=== PATIENT | female | born 1990 | race African-American/Black ===

== ENCOUNTER 2024-09-13 16:32 | Inpatient (IN) | payer MEDICAID, SELFPAY ==
[2024-09-10 09:42] VITALS: BMI 33.1
[2024-09-10 10:04] LABS: Collection Type, Urine Clean Catch
[2024-09-10 11:10] LABS: Basophils # (Auto) 0.1 Thou/mm3 (0.0-0.2); Basophils % (Auto) 1 % (0-2.5); Eosinophils # (Auto) 0.1 Thou/mm3 (0.0-0.5); Eosinophils % (Auto) 1 % (0-10); Immature Granulocytes % (Auto) 0 % (0-0); Immature Granulocytes Auto 0.02 Thou/mm3 (0.00-0.00); Lymphocytes # (Auto) 4.4 Thou/mm3 (1.0-4.8); Lymphocytes % (Auto) 47 % (10-50); Mean Corpuscular HGB Conc 34.2 g/dl (31.0-37.0); Mean Corpuscular Volume 91 fL (80-100); Monocytes # (Auto) 0.9 Thou/mm3 (0.0-0.8); Monocytes % (Auto) 10 % (0-12); Neutrophils # (Auto) 3.9 Thou/mm3 (1.8-7.7); Neutrophils % (Auto) 42 % (37-80); Nucleated Red Blood Cell % 0 /100 WBC (0); Platelet Count 376 Thou/mm3 (140-440); RDW Standard Deviation 46.5 fL (36.4-46.3); Red Blood Count 4.19 Miln/mm3 (4.00-5.20); White Blood Count 9.4 Thou/mm3 (3.6-11.0)
[2024-09-10 11:21] LABS: Alanine Aminotransferase 12 U/L (10-49); Albumin, Serum 4.3 gm/dL (3.5-5.0); Albumin/Globulin Ratio 1.4 (1.2-2.2); Alkaline Phosphatase 63 U/L (46-116); Anion Gap 4 (7-16); Aspartate Amino Transferase 15 U/L (0-34); BUN/Creatinine Ratio 9 Ratio (12-20); Bilirubin,Total 0.4 mg/dL (0.3-1.2); Blood Urea Nitrogen 6 mg/dL (9-23); Calcium 9.5 mg/dL (8.3-10.6); Calcium (Corrected) 9.5 mg/dL (8.5-10.1); Carbon Dioxide 28.4 mMol/L (20.0-31.0); Chloride 105 mMol/L (98-107); Creatinine (Component) 0.7 mg/dL (0.6-1.3); Estimated Creatinine Clearance 116.9 mL/min (>60); Glucose 87 mg/dL (74-106); Osmolality,Calculated 270 (275-295); Sodium 137 mMol/L (136-145); Total Protein 7.3 gm/dL (5.7-8.2); eGFR > 60 See Note
[2024-09-10 11:22] LABS: HCG Qualitative,Urine Negative
[2024-09-10 11:24] LABS: Bacteria,Urine Rare; Bilirubin,Urine Negative (Negative); Blood,Urine Trace (Negative); Clarity,Urine Clear (Clear/Hazy); Color,Urine Yellow (Lt Yel-Yel); Glucose, Urine Negative (Negative); Ketones,Urine Negative (Negative); Leukocyte Esterase,Urine Positive (Negative); Nitrite,Urine Negative (Negative); Protein,Urine 1+ (Neg - Trace); RBC,Urine 2 /hpf (0-3); Specific Gravity,Urine 1.032 (1.001-1.035); Squamous Epithelial Cell,Urine 1 /hpf (0-5); WBC,Urine 1 /hpf (0-5)
[2024-09-10 11:26] LABS: Partial Thromboplastin Time 29.1 Seconds (22.0-36.0); Prothrombin Time 11.3 Seconds (9.0-12.2)
[2024-09-10 11:32] LABS: COVID-19 Antigen (In-House) Negative (Negative)
--- NOTE | 2024-09-12 13:53 | PD.SURHP ---
HPI Date of Admission 09/13/2024 Chief Complaint Chief Complaint: Refrectory GERD after Gastric sleeve resection. HPI This 34 years old black female had gastric sleeve resection and she lost about 110 lbs but developed acid reflex. This is not responding well to PPI medications. She was found to have hiatal hernia and reflux. She will undergo laparoscopic Hiatal hernia and implantation of patch and fundoplication. Informed consent was obtained. Past Medical History Past Medical History NEUROLOGIC: Negative Neurological Disorders or Seizures CARDIAC: Negative Cardiac Disorders or Congestive Heart Failure RESPIRATORY: Negative Respiratory Disorders or Chronic Obstructive Pulmonary Disease (COPD) GASTROINTESTINAL: Positive Gastrointestinal Disorders, Hemorrhoids and Obesity; Negative Hepatitis GENITOURINARY: Negative Genitourinary Disorders or Renal Disease REPRODUCTIVE: Positive Previous Pregnancies (x1) MUSCULOSKELETAL: Positive Musculoskeletal Disorders and Scoliosis (had surgery) ENT: Negative History of ENT Problems ENDOCRINE: Negative Endocrine Disorders, Diabetes Mellitus Type 1 or Diabetes Mellitus Type 2 HEMATOLOGIC: Negative Blood Disorders OTHER HISTORY: Positive Hospitalization (hernia) and Chicken Pox; Negative Autoimmune Disease, Shingles, Blood Transfusions, Blood Transfusion Reaction, Anesthesia Reactions or Cancer Family History FAMILY HISTORY: Positive Family Surgery; Negative Family Psychiatric Problems, Family Respiratory Disorders, Family Cardiac Disorders, Family Gastrointestinal Problems, Family Genitourinary Problems, Family Endocrine Disorders, Family Reproductive Disorders, Family Musculoskeletal Disorders, Family Cancer or Family Anesthesia Reaction Surgical History SURGICAL: Positive Gastric Bypass Surgery and of Back Surgery (with metal for scoliosis) OTHER SURGICAL HX: breast reduction, tummy tuck Social History SMOKING STATUS: Never smoker Travel History EBOLA RISK: No Meds Home Medications and Allergies Home Medications ?Medication ?Instructions ?Recorded ?Confirmed ?Type No Known Home Medications 03/30/24 09/10/24 History Allergies Allergy/AdvReac Type Severity Reaction Status Date / Time No Known Allergies Allergy Verified 09/10/24 09:41 Exam Constitutional Constitutional: no acute distress Routine HEENT Exam Head: Present normocephalic Eye: Present EOMI and PERRL ENT: Present mucous membranes moist Routine Neck Exam Neck: Present supple and trachea midline Routine Chest/Breast/Axilla Exam Chest wall: Absent tenderness or mass Routine Respiratory Exam Respiratory: Present chest non-tender, lungs clear, normal breath sounds and no resp distress; Absent respiratory distress Routine Cardiovascular Exam Cardiovascular: Present RRR Routine Abdominal Exam Abdominal: Present soft and normoactive bowel sounds Routine Extremities Exam Extremities: Present full ROM Routine Skin Exam Skin: Present intact, dry and warm Routine Neurological Exam Neurological: Present alert, oriented X3 and CN II-XII intact Routine Psychiatric Exam Psychiatric: Present normal affect and normal thought process Results Results: Laboratory Laboratory results: results reviewed Assessment & Plan Problem List (1) Regurgitant esophagitis: Status: Acute (2) Left upper quadrant pain: Status: Acute (3) Hernia, hiatal: Status: Acute Plan Laparoscopic hiatal hernia repair with implantation of a patch and antireflux fundoplication. Quality Measures Quality Measures VTE prophylaxis
[2024-09-13] VITALS (16 sets, daily range): BP systolic 112–142; BP diastolic 70–90; PULSE 55–88; RESP 13–20; TEMP 36.1–36.9; O2SAT 95–99; BMI 33.0; BMI 33.5
[2024-09-13] MEDS: RINGERS LACTATED 1000 ML 1,000 ML 60 ML IV (08:45)
--- NOTE | 2024-09-13 10:39 | CHAP ---
Patient expressed gratitude for prayer before their procedure.
--- NOTE | 2024-09-13 14:51 | ESOP_ITS ---
Date of Procedure 09/13/24 Pre Op Diagnosis S/p gastric sleeve resection and refractory gastroesophageal reflux. Post Op Diagnosis Same with the severe adhesions to the liver and the spleen lysis of adhesions produce bleeding from the splenic hilum. Procedure Attempted laparoscopic antireflux procedure and laparoscopic lysis of adhesions September 13, 2024 Exploratory laparotomy and control of splenic bleeding from hilum 270 degree Toupet fundoplication. Findings This patient had a previous gastric sleeve resection as a obesity management surgery. She had significant gastroesophageal reflux and therefore she was brought to the operating room for laparoscopic antireflux procedure. Upon examination she was found to have severe adhesions of the stomach to the liver and lysis of adhesions was carried out safely. The diaphragmatic hiatus was identified. This was very small. Further dissection was carried out to the left side stomach where the stomach was densely adherent to the splenic hilum. Attempted to lysis of adhesions. Bleeding from some of the splenic vessels which was more than can be controlled laparoscopically therefore explore laparotomy was necessary. Upon explore laparotomy it was evident that there still were adhesions of the stomach to the spleen and there was bleeding from the splenic hilum that required suture ligation. We are able to control the bl eeding these were without removing the spleen. Further examination showed that the hiatal opening was small there was no hiatal hernia however there was a large fundal residual fundus perhaps this is the place where she is getting reflux she required antireflux procedure with fundoplication and I was able to do 270 degree fundoplication. Otherwise there were no other findings. Procedure Description Patient was interviewed in the preop holding area and the procedure was discussed in detail. Risk benefits and alternatives were also discussed and informed consent is obtained. The patient was then brought to the operating room by the nursing staff. The patient was positioned in supine position on the operating table. Gen. anesthesia was administered in a satisfactory manner. The patient was positioned in the modified lithotomy position in the [facility]. Patient was given prophylactic IV antibiotics half an hour before the procedure started. The Flowtron's are applied to both legs is anti-embolism mechanism. The chest abdomen and genitalia and the legs are prepped and draped in usual manner. An open laparoscopic procedure is carried out and balloon cannula is inserted through the supraumbilical incision. There were adhesions to the peritoneal side of the linea alba and lysis of adhesions was required to insert the balloon cannula. After that the pneumoperitoneum is achieved. The patient is positioned in the reverse Trendelenburg position. The 30? scope is used. It was evident that there was a large amount of adhesions and the stomach was densely adherent to the liver. Under direct vision a 10 mm cannulae is inserted in the left upper quadrant midclavicular line. A 5 mm cannula was introduced into the right midclavicular line in the line of the primary trocar. With this I had to do lysis of adhesions with the falciform ligament and between the liver and the stomach this was very densely adherent with the scar tissue. After gentle lysis of adhesions I was able to separate the stomach from the liver all the way up to the diaphragmatic crura. After this I inserted medium Bro retractor to retract the liver up. After that I directed my attention to the left side where the stomach was adherent with the omentum and a large amount of adhesions which were sequentially lysed. Some of the laparoscopic sutures and robbie were redundant close to the spleen and examination of that produced bleeding from the splenic hilum. I was not able to control her bleeding laparoscopically so I decided to do open laparotomy by making a midline incision. I control the bleeding by pressure and packing while we were converting through open laparotomy. After these a speed track self-retaining retractor was placed and the abdominal wall was retracted. The stomach was still adherent to the spleen and a gentle lysis of adhesions was carried out in stomach was finally rotated to the right side while we were keeping pressure on the bleeding site. After all that the splenic hilum was examined and there are 3 vessels perhaps splenic vein stable bleeding. They were controlled with clamps and there were no other location of bleeding. I suture-ligated all this bleeding site in the hilum with a figure of eight 2-0 silk suture. After control of the bleeding it was noted that the total blood loss was 170 cc. Operative field was thoroughly irrigated and hemostasis was already achieved. After this I examined the diaphragmatic hiatus and did not allow my finger to go alongside the esophagus. 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 I was able to go around the esophagus and put a umbilical tape around it for retraction. After that I examined the fundus apparently the fundus after the previous surgery was left quite large and it radially came around the esophagus for fundoplication. Initially I thought I could even do 360 degree fundoplication but it was tense so I got the 56 Vital inserted in the esophagus by the anesthesiologist and then I decided to do 270 degree fundoplication. The freed fundus was brought around the esophagus and then I sutured it to the right and left side of the esophagus starting from the GE junction. There is about 2 cm gap between the 2 areas of fundus for the Toupet fundoplication. After this I irrigated the operative field thoroughly and there was no bleeding. As a precaution I left Surgicel in the splenic hilum for potential small vessel bleeding. I placed Interceed between the liver and the wrist stomach and then took all the cannulas out there is no bleeding from the cannula sites. I closed the linea alba with 0 PDS continuous suture interrupted in the middle subcutaneous tissue by 3-0 Vicryl interrupted sutures and skin by robbie. The laparoscopic incisions were closed using robbie. The patient tolerated the procedure very well and is transferred to the recovery room in satisfactory condition. Anesthesia GETA Drains None. Implants None. Pathology / specimen None Estimated Blood Loss 170 Condition Stable Disposition PACU Surgeon Josiah Nino MD Surgical Staff Operation Date: 09/13/24 10:45 Case Staff Anesthesiologist: Arnoldo Donald RNwebsphere process server developer: Vandana Bazan RN manager registration Isis Denson certified surgical technologist
--- NOTE | 2024-09-13 14:52 | SUR.PHASEI ---
pt arrived to PACU via bed with oral airway present, breathing unlabored, dressing to abdomen clean, dry, and intact, VS stable, report from Abdirashid RUVALCABA and Dr Donald.
--- NOTE | 2024-09-13 16:30 | SUR.PHASEII ---
pt drowsy but arouses to verbal commands, breathing unlabored, dressing to abdomen clean, dry, and intact, hicks in place and patent, VS stable, report called to Kathy RN, pt transferred to room at this time, family updated on pt status and room number
[2024-09-13] MEDS: HYDROmorphone 1 MG/ML PCA SYRINGE 30ML PCA (17:11)
[2024-09-13] MEDS: ONDANSETRON INJ 2 MG/ML INJ 2 ML 4 MG IV (17:51)
[2024-09-13] MEDS: ACETAMINOPHEN IVPB 1,000 MG/100 ML VIAL 250 MG IV ×2 (17:52→23:57)
[2024-09-13] MEDS: RINGERS LACTATED 1000 ML 1,000 ML 50 ML IV (18:45)
--- NOTE | 2024-09-13 19:14 | PC.NURSE ---
patient educated on how to use [employer] pump vitals signs stable, patient alert and orientated, dinkey brakeman volume infused in my shift 1.40mg
[2024-09-13] MEDS: PROMETHAZINE INJ 12.5 MG in SODIUM CHLORIDE 0.9% 50 ML 2.5 MG IV (19:32)
[2024-09-13] MEDS: GABAPENTIN 100 MG CAPSULE 200 MG PO (21:09)
[2024-09-14] VITALS (11 sets, daily range): BP systolic 129–155; BP diastolic 64–100; PULSE 60–84; RESP 11–20; TEMP 36–36.8; O2SAT 97–100
[2024-09-14] MEDS: ACETAMINOPHEN IVPB 1,000 MG/100 ML VIAL 250 MG IV ×2 (05:20→12:13)
[2024-09-14] MEDS: RINGERS LACTATED 1000 ML 1,000 ML 50 ML IV (05:22)
[2024-09-14] MEDS: PROMETHAZINE INJ 12.5 MG in SODIUM CHLORIDE 0.9% 50 ML 2.5 MG IV (07:13)
--- NOTE | 2024-09-14 07:41 | PC.NURSE ---
total ACTIVITY ASSISTANT volume infused this shift 5.6 mg.
[2024-09-14 07:50] LABS: Basophils % (Auto) 0 % (0-2.5); Eosinophils % (Auto) 0 % (0-10); Hematocrit 36.9 % (36.0-46.0); Hemoglobin 12.6 g/dL (12.0-16.0); Immature Granulocytes % (Auto) 0 % (0-0); Immature Granulocytes Auto 0.05 Thou/mm3 (0.00-0.00); Lymphocytes # (Auto) 3.1 Thou/mm3 (1.0-4.8); Lymphocytes % (Auto) 18 % (10-50); Mean Corpuscular HGB Conc 34.1 g/dl (31.0-37.0); Mean Corpuscular Volume 91 fL (80-100); Monocytes % (Auto) 12 % (0-12); Neutrophils # (Auto) 12.1 Thou/mm3 (1.8-7.7); Neutrophils % (Auto) 70 % (37-80); Nucleated Red Blood Cell % 0 /100 WBC (0); Platelet Count 330 Thou/mm3 (140-440); RDW Standard Deviation 47.8 fL (36.4-46.3); Red Blood Count 4.06 Miln/mm3 (4.00-5.20); White Blood Count 17.3 Thou/mm3 (3.6-11.0)
[2024-09-14] MEDS: GABAPENTIN 100 MG CAPSULE 200 MG PO ×2 (08:38→20:52)
--- NOTE | 2024-09-14 09:31 | PD.SURPROG ---
Documentation for date of: 09/14/24 Subjective Subjective Brief History: This 34 years old black female had gastric sleeve resection and she lost about 110 lbs but developed acid reflex. This is not responding well to PPI medications. She was found to have hiatal hernia and reflux. She will undergo laparoscopic Hiatal hernia and implantation of patch and fundoplication. Informed consent was obtained. Postop day 1 September 15, 2024: Coughing will have to check chest x-ray. She has some wheezes on the bases that she also is known to have asthma. Will request internal medicine consultation. She is able to tolerate a clear liquid diet without any dysphagia or difficulty she has no acid reflux as far as she can tell. The Adams catheter will be removed today she is requiring IV narcotics for pain management. She is not using incentive spirometer this was ordered and patient was taught how to use incentive spirometer. She has complaints of incisional abdominal pain otherwise she is okay. Exam Vital Signs Temp Pulse Resp BP Pulse Ox O2 Del Method O2 Flow Rate 98.2 F 61 18 145/96 H 100 Room Air 2 09/14/24 08:00 09/14/24 08:00 09/14/24 08:00 09/14/24 08:00 09/14/24 08:00 09/14/24 08:00 09/14/24 04:35 Narrative Exam Abdomen is soft and nondistended there is incisional pain and tenderness there is no swelling or bleeding there is no drainage from the incision. Lung examination showed some rhonchi on both the bases there are no rales breath sounds are somewhat reduced on the basis the chest x-ray is pending. Extremities are unremarkable. Results Results: Laboratory Laboratory Narrative: Patient's white cell count is elevated. Laboratory results: results reviewed Results: Imaging Chest x-ray: pending Assessment & Plan Diagnosis (1) Hernia, hiatal: Status: Acute (2) Regurgitant esophagitis: Status: Acute (3) Bleeding: Status: Acute (4) Pneumonia: Status: Acute Plan Continue IV pain medication incentive spirometry and advance diet to full liquid diet patient needs assistance in getting out of the bed to ambulate and once she begins to do that we may be able to discharge her home. At this time the chest x-ray is pending requested the internal medicine hospitalist consultation and further management according to the findings. Procedures Procedures Attempted laparoscopic antireflux procedure and laparoscopic lysis of adhesions September 13, 2024 Exploratory laparotomy and control of splenic bleeding from hilum 270 degree Toupet fundoplication.
--- NOTE | 2024-09-14 09:32 | XR_ITS ---
Examination: PA lateral chest 2 views TECHNIQUE: Upright PA lateral chest 2 views Exam date and time: September 14, 2024 0956 hours INDICATIONS: Coughing with leukocytosis today. FINDINGS: Suspicious for early left lower lobe pneumonia obscuring detail left hemidiaphragm Normal heart size No pulmonary edema Prominent thoracic dextroscoliosis with orthopedic hardware IMPRESSION: Suspicious for early left base pneumonia
--- NOTE | 2024-09-14 10:53 | PC.SS ---
Patient is alert/oriented. Admitted for lower gas pain. Patient had surgery yesterday for laparotomy. Patient states she's independent with ADL's. Patient states she follows with Dr. Washburn at [facility] in [place]. Last appt. was last week. Patient pharmacy is [facility]. Patient states her mother is the [facility] medical decision maker. Her daughter is second, if we cannot get a hold of her mother. D/c plan is to return home with family. Patient states she takes the [employer] transportation to appointments. Patient states she was updated she may d/c home tommorrow.
--- NOTE | 2024-09-14 13:47 | PD.ANESPROG ---
Documentation for date of: 09/14/24 POST ANESTHESIA NOTE: Patient had GETA for lap ten yesterday. I just saw her briefly in 382 and she was alert and calm, seated up in bed, NAD, denied any problems from anesthesia. Arnoldo Donald MD Anesthesia Progress Note Progress Note Most recent Vital Signs: Last Vital Signs Temp 97.1 F 09/14/24 12:53 Pulse 61 09/14/24 12:53 Resp 16 09/14/24 12:53 BP 149/93 H 09/14/24 12:53 Pulse Ox 99 09/14/24 12:53 O2 Del Method Nasal Cannula 09/14/24 12:53 O2 Flow Rate 2 09/14/24 12:53
--- NOTE | 2024-09-14 15:30 | PC.NURSE ---
Notified Trung of cxr result. per MD consult hospitalist. Hospitalist notified
--- NOTE | 2024-09-14 15:42 | CHAP ---
09:30 AM Visited by spiritual care volunteer Provided prayer for Patient
--- NOTE | 2024-09-14 16:42 | PD.RESCONSUL ---
HPI Data of Consult Requesting Physician: Josiah Nino MD Admitting Provider: Josiah Nino MD Attending Provider: Josiah Nino MD Primary Care Provider: Sherin Washburn PA-C Consult Narrative Reason for consult: Pneumonia History of present illness: 34-year-old female with past medical history of obesity, gastric sleeve resection, acid reflux, not responsive to PPIs, and hiatal hernia, and distant asthma hx who presented to the hospital on 09/12/2024 for hiatal hernia repair. On 09/13/2024, patient started to develop a cough in the morning prior to her procedure. Patient states her cough became productive and was clear yesterday. In the evening, patient started to notice thicker sputum. On 09/14/2020 in the morning, she started to develop greenish-yellowish productive sputum and the cough became more severe. Patient denies headache, fever, chills, chest pain, palpitation, shortness of breath, dizziness, nausea, vomiting, diarrhea, or constipation. Chest x-ray showed left base pneumonia. Subsequently, surgeon consulted medicine team for management of community-acquired pneumonia. Vitals: BP 130/83, HR 79, RR 14, 97.8F, 97% nasal cannula 10 L/min. WBC 17.3, WBC 17.3, hemoglobin 12.6, hematocrit 36.9%, MCV 91, platelet count 330. Chest x-ray showed suspicious for early left base pneumonia. No pulmonary edema. Past medical history: As above Allergies: None Medications: Hydroxyzine 25 mg 1 to 2 tablets as needed to assist with sleep at night. Family history: Maternal: Stroke?grandmother and uncle. Paternal: None Surgical history: Gastric sleeve resection, hiatal hernia fundoplication Social history: Denies smoking tobacco, alcohol use, or illicit substances. Lives at home with a 14-year-old daughter. 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 cc:: cc: Josiah Nino MD Past Medical History Past Medical History NEUROLOGIC: Negative Neurological Disorders or Seizures CARDIAC: Negative Cardiac Disorders or Congestive Heart Failure RESPIRATORY: Negative Respiratory Disorders or Chronic Obstructive Pulmonary Disease (COPD) GASTROINTESTINAL: Positive Gastrointestinal Disorders, Hemorrhoids and Obesity; Negative Hepatitis GENITOURINARY: Negative Genitourinary Disorders or Renal Disease REPRODUCTIVE: Positive Previous Pregnancies (x1) MUSCULOSKELETAL: Positive Musculoskeletal Disorders and Scoliosis (had surgery) ENT: Negative History of ENT Problems ENDOCRINE: Negative Endocrine Disorders, Diabetes Mellitus Type 1 or Diabetes Mellitus Type 2 HEMATOLOGIC: Negative Blood Disorders OTHER HISTORY: Positive Hospitalization (hernia) and Chicken Pox; Negative Autoimmune Disease, Shingles, Blood Transfusions, Blood Transfusion Reaction, Anesthesia Reactions or Cancer Family History FAMILY HISTORY: Positive Family Surgery; Negative Family Psychiatric Problems, Family Respiratory Disorders, Family Cardiac Disorders, Family Gastrointestinal Problems, Family Genitourinary Problems, Family Endocrine Disorders, Family Reproductive Disorders, Family Musculoskeletal Disorders, Family Cancer or Family Anesthesia Reaction Surgical History SURGICAL: Positive Gastric Bypass Surgery and of Back Surgery (with metal for scoliosis) OTHER SURGICAL HX: breast reduction, tummy tuck Social History SMOKING STATUS: Never smoker Travel History EBOLA RISK: No Exam Vital Signs Temp Pulse Resp BP Pulse Ox O2 Del Method O2 Flow Rate 97.1 F 61 16 149/93 H 99 Nasal Cannula 2 09/14/24 12:53 09/14/24 12:53 09/14/24 12:53 09/14/24 12:53 09/14/24 12:53 09/14/24 12:53 09/14/24 12:53 Narrative Exam Constitutional: well-developed, well-nourished, in no acute distress, lying in bed. HEENT: NCAT, EOMI, reactive round pupils b/l, patent nares b/l, moist mucous membranes, saturating at 99% 2L nasal cannula Lung: CTAB, no wheezing, ++rhonchi bilaterally all lung lobes. Heart: Regular S1S2, no murmurs, gallops, or rubs. Abdomen: Soft, non-distended, non-tender, ++bowel sounds present throughout, Surgical gauze at midline and abdominal binder noted. Extremities: No cyanosis, clubbing, no edema of b/l legs, 2+ dorsalis pulses present b/l Neurologic: No focal sensory or motor deficits noted, AOx3, appropriate affect Skin: Warm, dry, no lesions or rashes noted Results Labs 09/14/24 07:24 09/10/24 10:02 Labs: Short CBC 09/14/24 Range/Units 07:24 WBC 17.3 H D (3.6-11.0) Thou/mm3 Hgb 12.6 (12.0-16.0) g/dL Hct 36.9 (36.0-46.0) % Plt Count 330 D (140-440) Thou/mm3 Quality Measures Quality Measures VTE prophylaxis Medications Home Medications and Allergies Home Medications ?Medication ?Instructions ?Recorded ?Confirmed ?Type No Known Home Medications 03/30/24 09/10/24 History Allergies Allergy/AdvReac Type Severity Reaction Status Date / Time No Known Allergies Allergy Verified 09/13/24 15:26 Visit Medications Gabapentin (Gabapentin 100 Mg Capsule) 200 mg PO BID [facility] Stop: 10/13/24 20:59 Last Admin: 09/14/24 08:38 Dose: 200 mg Hydromorphone HCl (Hydromorphone 1 Mg/Ml Intern Product Marketing Manager Syringe 30ml) 0 mg STEAMBOAT CAPTAIN UD OSWALDO; Protocol Stop: 09/18/24 15:30 Last Admin: 09/13/24 17:11 Dose: 30 mg Lactated Ringer's (Lactated Ringers) 1,000 mls @ 50 mls/hr IV .Q20H OSWALDO Stop: 10/13/24 15:30 Last Admin: 09/14/24 05:22 Dose: 50 mls/hr Promethazine HCl 12.5 mg/ (Sodium Chloride) 50.5 mls @ 2.5 mls/min IV Q4HR PRN; Protocol PRN Reason: NAUSEA OR VOMITING Stop: 10/13/24 16:51 Last Admin: 09/14/24 07:13 Dose: 2.5 mls/min Ondansetron HCl (Ondansetron Inj 2 Mg/Ml Inj 2 Ml) 4 mg IV Q6HR PRN; Protocol PRN Reason: NAUSEA OR VOMITING Stop: 10/13/24 16:51 Last Admin: 09/13/24 17:51 Dose: 4 mg Discontinued Medications Albuterol (Albuterol Rt 2.5 Mg/3 Ml Nebu) 2.5 mg INH X1 PRN PRN Reason: WHEEZING Stop: 10/13/24 14:11 Fentanyl Citrate (Fentanyl Cit Inj 50 Mcg/Ml Amp 2ml) 50 mcg IV Q5MIN PRN PRN Reason: PAIN SCALE 4-10(Mod-Sev Stop: 09/13/24 16:12 Hydralazine HCl (Hydralazine Inj 20 Mg/Ml Vial) 5 mg IV Q20MIN PRN PRN Reason: SEE COMMENTS Stop: 09/13/24 16:12 Hydromorphone HCl (Hydromorphone Inj 2 Mg/Ml Vial) 0.5 mg IV Q10MIN PRN PRN Reason: PAIN SCALE 4-10(Mod-Sev Stop: 09/13/24 16:12 Cefoxitin Sodium 2 gm/ Sterile (Water) 10 mls @ 120 mls/hr IVP X1 ONE Stop: 09/13/24 06:04 Last Admin: 09/13/24 15:33 Dose: Not Given Lactated Ringer's (Lactated Ringers) 1,000 mls @ 60 mls/hr IV .[id number] OSWALDO Stop: 09/14/24 05:59 Last Admin: 09/13/24 08:45 Dose: 60 mls/hr Promethazine HCl 12.5 mg/ (Sodium Chloride) 50.5 mls @ 2.5 mls/min IM X1 PRN PRN Reason: NAUSEA OR VOMITING Stop: 09/13/24 16:12 Acetaminophen (Ofirmev Inj) 1,000 mg in 100 mls @ 250 mls/hr IV Q6HR OSWALDO Stop: 09/14/24 12:23 Last Admin: 09/14/24 12:13 Dose: 250 mls/hr Ketorolac Tromethamine (Ketorolac Inj 30 Mg/Ml Vial) 15 mg IVP X1 PRN PRN Reason: PAIN SCALE 4-10(Mod-Sev Stop: 09/18/24 14:11 Meperidine HCl (Meperidine Inj 50 Mg/Ml Vial) 12.5 mg IV Q5M PRN PRN Reason: SHIVERING Stop: 09/18/24 14:10 Metoclopramide HCl (Metoclopramide Inj 5 Mg/Ml Vial 2 Ml) 10 mg IVP X1 PRN; Protocol PRN Reason: NAUSEA OR VOMITING Metoprolol Tartrate (Metoprolol Tartrate Inj 1 Mg/Ml Amp 5 Ml) 1 mg IVP Q5MIN PRN PRN Reason: TACHYCARDIA Stop: 09/13/24 16:13 Midazolam HCl (Midazolam Inj 1 Mg/Ml Vial 2 Ml) 1 mg IV Q5MIN PRN PRN Reason: ANXIETY Stop: 09/14/24 14:10 Ondansetron HCl (Ondansetron Inj 2 Mg/Ml Inj 2 Ml) 4 mg IV X1 PRN PRN Reason: NAUSEA OR VOMITING Stop: 09/13/24 16:12 Assessment & Plan Plan A 34-year-old female with past medical history of obesity, gastric sleeve resection, acid reflux, not responsive to PPIs, and hiatal hernia, and distant asthma hx who presented to the hospital on 09/12/2024 for hiatal hernia repair. On 09/14/2020 in the morning, she started to develop greenish-yellowish productive sputum and the cough became more severe. Subsequently, surgeon consulted medicine team for management of community-acquired pneumonia. #Community acquired pneumonia Ddx: CAP vs asthma Patient presented with complaint of productive cough with imaging showing early pneumonia. 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 Patient denies any sick contacts or any recent travel. Patient does endorse a history of asthma in the past at the age of 13, but considering productive cough more indicative of pneumonia clinically. Chest x-ray showed suspicious for early left base pneumonia. No pulmonary edema. On physical exam, bilateral rales noted in all lung lobes. Currently saturating 99% on 2 L oxygen WBC 17.3. BP 130/83, HR 79, RR 14, 97.8F, 97% nasal cannula 10 L/min. Plan: -IV Ceftriaxone 1 IV daily (09/14- -IV Azithromycin 500 mg 5 days (09/14- -Incentive spirometry -Blood culture; f/up -Sputum cultures;f /up -Coccidiomycosis, strep A, MRSA, pending; F/up -CBC and CMP in am # gastric sleeve resection #Acid reflux, not responsive to PPIs #Hiatal hernia #obesity Hiatal hernia repair by Dr. Nino via fundoplication on 09/13/2024. -management as per Dr. Nino surgeon. Discussed case with my attending Dr. Phillip. Thank you, Mary Castro, PGY-2 Attending Provider Attestation/Addendum I reviewed labs, imaging, EKG, home medications and prior available records. Face to face evaluation was performed by me. I have personally examined the patient and discussed assessment and plan with the IM team. I reviewed the resident note and agree with the plan with exceptions as below. Patient is a 34-year-old female with history of obesity status post gastric sleeve resection, complicated with GERD in the setting of hiatal hernia who presented with significant acid reflux symptoms. She was admitted for elective hernia repair. Patient is s/p repair. She was found to have significant productive cough. Labs showed significant leukocytosis and chest x-ray showed left base pneumonia. Internal medicine team was consulted for left base pneumonia recommendations. Acute hypoxic respiratory failure: She is on 2 L nasal cannula. In the setting of left base pneumonia. Start ceftriaxone IV/azithromycin. Encourage incentive spirometry at least 10 times per hour. Instructed the patient about the appropriate use of the spirometry device. Continue pain management and avoid undertreatment. Continue hydromorphone pump. Left base pneumonia: Started the patient on IV ceftriaxone/azithromycin. Continue incentive spirometry. Wean of oxygen as tolerated. Hiatal hernia: S/p surgical repair. Incision site appears intact without bleeding or significant erythema. Continue pain management. Surgery is following.
[2024-09-14] MEDS: cefTRIAXone/D5w 1gm IV premix 50 ML IV (18:05)
[2024-09-14] MEDS: AZITHROMYCIN INJ 500 MG in SODIUM CHLORIDE 0.9% 250 ML 250 ML 250 MG IV (18:40)
[2024-09-14 19:33] LABS: Alanine Aminotransferase 56 U/L (10-49); Albumin, Serum 4.2 gm/dL (3.5-5.0); Albumin/Globulin Ratio 1.6 (1.2-2.2); Alkaline Phosphatase 55 U/L (46-116); Anion Gap 3 (7-16); Aspartate Amino Transferase 60 U/L (0-34); BUN/Creatinine Ratio 8 Ratio (12-20); Bilirubin,Total 0.6 mg/dL (0.3-1.2); Blood Urea Nitrogen < 5 mg/dL (9-23); Calcium 9.3 mg/dL (8.3-10.6); Calcium (Corrected) 9.3 mg/dL (8.5-10.1); Carbon Dioxide 29.1 mMol/L (20.0-31.0); Chloride 101 mMol/L (98-107); Creatinine (Component) 0.6 mg/dL (0.6-1.3); Estimated Creatinine Clearance 134.2 mL/min (>60); Globulin 2.7 gm/dL (2.3-3.5); Glucose 107 mg/dL (74-106); Osmolality,Calculated 263 (275-295); Sodium 133 mMol/L (136-145); Total Protein 6.9 gm/dL (5.7-8.2); eGFR > 60 See Note
[2024-09-15] VITALS (11 sets, daily range): BP systolic 114–160; BP diastolic 82–102; PULSE 63–98; RESP 16–20; TEMP 36.1–36.6; O2SAT 98–100
[2024-09-15] MEDS: RINGERS LACTATED 1000 ML 1,000 ML 50 ML IV (00:44)
[2024-09-15] MEDS: ONDANSETRON INJ 2 MG/ML INJ 2 ML 4 MG IV (00:44)
[2024-09-15 05:49] LABS: Basophils % (Auto) 0 % (0-2.5); Eosinophils # (Auto) 0.1 Thou/mm3 (0.0-0.5); Eosinophils % (Auto) 0 % (0-10); Hematocrit 35.9 % (36.0-46.0); Hemoglobin 12.5 g/dL (12.0-16.0); Immature Granulocytes % (Auto) 0 % (0-0); Immature Granulocytes Auto 0.05 Thou/mm3 (0.00-0.00); Lymphocytes # (Auto) 4.8 Thou/mm3 (1.0-4.8); Lymphocytes % (Auto) 28 % (10-50); Mean Corpuscular HGB Conc 34.8 g/dl (31.0-37.0); Mean Corpuscular Hemoglobin 31.5 pg (25.0-35.0); Mean Corpuscular Volume 90 fL (80-100); Monocytes % (Auto) 12 % (0-12); Neutrophils # (Auto) 10.3 Thou/mm3 (1.8-7.7); Neutrophils % (Auto) 60 % (37-80); Nucleated Red Blood Cell % 0 /100 WBC (0); Platelet Count 311 Thou/mm3 (140-440); RDW Standard Deviation 47.7 fL (36.4-46.3); Red Blood Count 3.97 Miln/mm3 (4.00-5.20); White Blood Count 17.2 Thou/mm3 (3.6-11.0)
[2024-09-15 06:19] LABS: Alanine Aminotransferase 52 U/L (10-49); Albumin, Serum 4.3 gm/dL (3.5-5.0); Albumin/Globulin Ratio 1.5 (1.2-2.2); Alkaline Phosphatase 59 U/L (46-116); Anion Gap 5 (7-16); Aspartate Amino Transferase 53 U/L (0-34); BUN/Creatinine Ratio 8 Ratio (12-20); Bilirubin,Total 0.6 mg/dL (0.3-1.2); Blood Urea Nitrogen < 5 mg/dL (9-23); Calcium 9.8 mg/dL (8.3-10.6); Calcium (Corrected) 9.8 mg/dL (8.5-10.1); Chloride 99 mMol/L (98-107); Creatinine (Component) 0.6 mg/dL (0.6-1.3); Estimated Creatinine Clearance 134.2 mL/min (>60); Globulin 2.9 gm/dL (2.3-3.5); Glucose 91 mg/dL (74-106); Osmolality,Calculated 265 (275-295); Potassium 3.5 mMol/L (3.4-5.1); Sodium 134 mMol/L (136-145); Total Protein 7.2 gm/dL (5.7-8.2); eGFR > 60 See Note
[2024-09-15 06:41] LABS: Strep A Rapid Negative (Negative)
[2024-09-15] MEDS: GABAPENTIN 100 MG CAPSULE 200 MG PO ×2 (08:45→21:21)
[2024-09-15] MEDS: cefTRIAXone/D5w 1gm IV premix 50 ML IV (08:46)
[2024-09-15] MEDS: POTASSIUM CHLORIDE 20 mEq TABCR 40 MEQ PO (10:03)
[2024-09-15] MEDS: AZITHROMYCIN 250 MG TABLET 500 MG PO (10:03)
--- NOTE | 2024-09-15 10:53 | CHAP ---
Patient was visited by a Spiritual Care Volunteer on 09/15/2024 between [id number] [phone] [id number] and received comfort, encouragement and/or prayer.
--- NOTE | 2024-09-15 10:53 | PC.NURSE ---
called md about discontinuing maintenance data analyst pump and getting po pain meds on board, left message with registered nurse first assistant
--- NOTE | 2024-09-15 11:06 | ESPR_ITS ---
<Statement entered by Jos Ayala MD - 09/15/24 16:24> Senior Resident Attestation: I supervised/discussed management plan with resident physician Dr. Castro, and was involved in the care of this patient. I personally saw and examined the patient and discussed the assessment and plan with the entire medicine team, including my attending. Patient's care was discussed with attending physician, Dr. Zaira Ayala MD PGY-3 Documentation for date of: 09/15/24 Subjective Subjective Interval history: A 34-year-old female with past medical history of obesity, gastric sleeve resection, acid reflux, not responsive to PPIs, and hiatal hernia, and distant asthma hx who presented to the hospital on 09/12/2024 for hiatal hernia repair. She developed a cough that became greenish-yellowish productive sputum. Surgeon consulted medicine team for management of community-acquired pneumonia. No acute overnight events. Patient is seen at bedside. She was examined. She endorses sputum is now clear, no longer greenish color. She has cough that is decreasing in volume. Will continue IV antibiotics and incentive spirometry. Pending blood cultures, sputum cultures, influenza and cocci. Exam Vital Signs Temp Pulse Resp BP Pulse Ox O2 Del Method O2 Flow Rate 97.1 F 80 18 157/96 H 99 Room Air 2 09/15/24 08:00 09/15/24 08:35 09/15/24 08:35 09/15/24 08:00 09/15/24 08:35 09/15/24 05:25 09/15/24 08:35 Narrative Exam Constitutional: well-developed, well-nourished, in no acute distress, lying in bed. HEENT: NCAT, EOMI, reactive round pupils b/l, patent nares b/l, moist mucous membranes, saturating at 98% 1L nasal cannula Lung: CTAB, no wheezing, +rhonchi bilaterally posterior lung lobes- improving. Heart: Regular S1S2, no murmurs, gallops, or rubs. Abdomen: Soft, non-distended, Surgical gauze at midline and abdominal binder noted. Extremities: No cyanosis, clubbing, no edema of b/l legs, 2+ dorsalis pulses present b/l Neurologic: No motor deficits noted, AOx3, appropriate affect Skin: Warm, dry, no lesions or rashes noted Objective Labs 09/16/24 05:39 09/16/24 05:39 Labs: Laboratory Results - last 24 hr 09/14/24 09/15/24 09/15/24 19:09 04:24 05:10 WBC 17.2 H RBC 3.97 L Hgb 12.5 Hct 35.9 L MCV 90 MCH 31.5 MCHC 34.8 RDW Std Deviation 47.7 H Plt Count 311 Neut % (Auto) 60 Lymph % (Auto) 28 [place] % (Auto) 12 Eos % (Auto) 0 Baso % (Auto) 0 Neut # (Auto) 10.3 H Lymph # (Auto) 4.8 [place] # (Auto) 2.0 H Eos # (Auto) 0.1 Baso # (Auto) 0.0 Immature Gran # (Auto) 0.05 H Absolute Nucleated RBC 0.00 Immature Gran % 0 Nucleated RBC % 0 Sodium 133 L 134 L Potassium 4.0 3.5 D Chloride 101 99 Carbon Dioxide 29.1 30.0 Anion Gap 3 L 5 L BUN < 5 L < 5 L Creatinine 0.6 0.6 Estim Creat Clear Calc 134.2 134.2 eGFR > 60 > 60 BUN/Creatinine Ratio 8 L 8 L Glucose 107 H 91 Calculated Osmolality 263 L 265 L Calcium 9.3 9.8 Corrected Calcium 9.3 9.8 Total Bilirubin 0.6 0.6 AST 60 H 53 H ALT 56 H 52 H Alkaline Phosphatase 55 59 Total Protein 6.9 7.2 Albumin 4.2 4.3 Globulin 2.7 2.9 Albumin/Globulin Ratio 1.6 1.5 Group A Strep Rapid Negative Quality Measures Quality Measures VTE prophylaxis Assessment & Plan Assessment Current Active Medications: Generic Name Dose Route Start Last Admin Trade Name Lorena PRN Reason Stop Dose Admin Azithromycin 500 mg 09/15/24 09:00 09/15/24 10:03 Azithromycin 250 Mg Tablet PO 09/18/24 08:59 500 mg QDAY OSWALDO Administration Gabapentin 200 mg 09/13/24 21:00 09/15/24 08:45 Gabapentin 100 Mg Capsule PO 10/13/24 20:59 200 mg BID OSWALDO Administration Hydromorphone HCl 0 mg 09/13/24 15:31 09/13/24 17:11 Hydromorphone 1 Mg/Ml Warehouse Distribution Manager Syringe 30ml DRY CLEANING ATTENDANT 09/18/24 15:30 30 mg UD OSWALDO Administration Protocol Lactated Ringer's 1,000 mls @ 50 mls/hr 09/13/24 15:31 09/15/24 00:44 Lactated Ringers IV 10/13/24 15:30 50 mls/hr .Q20H OSWALDO Administration Promethazine HCl 12.5 mg/ 50.5 mls @ 2.5 mls/min 09/13/24 16:52 09/14/24 07:13 Sodium Chloride IV 10/13/24 16:51 2.5 mls/min Q4HR PRN Administration NAUSEA OR VOMITING Protocol Ceftriaxone Sodium/Dextrose 50 mls @ 100 mls/hr 09/14/24 17:05 09/15/24 08:46 Rocephin/D5w 1gm Iv Premix IV 09/21/24 17:04 100 mls/hr QDAY OSWALDO Administration Ondansetron HCl 4 mg 09/13/24 16:52 09/15/24 00:44 Ondansetron Inj 2 Mg/Ml Inj 2 Ml IV 10/13/24 16:51 4 mg Q6HR PRN Administration NAUSEA OR VOMITING Protocol Plan A 34-year-old female with past medical history of obesity, gastric sleeve resection, acid reflux, not responsive to PPIs, and hiatal hernia, and distant asthma hx who presented to the hospital on 09/12/2024 for hiatal hernia repair. On 09/14/2020 in the morning, she started to develop greenish-yellowish productive sputum and the cough became more severe. Subsequently, surgeon consulted medicine team for management of community-acquired pneumonia, on IV ABX and pending blood cultures. #Community acquired pneumonia Ddx: CAP vs asthma, less likely Patient presented with complaint of productive cough with imaging showing pneumonia. 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 Patient denies any sick contacts or any recent travel. Patient does endorse a history of childhood asthma but with productive cough more indicative of pneumonia clinically. Chest x-ray showed suspicious for early left base pneumonia. No pulmonary edema. On physical exam, bilateral rales noted in lung lobes, improving. Productive sputum is improving. Currently saturating 98% on 1 L oxygen WBC 17.3. Strep A negative. COVID negative. Plan: -IV Ceftriaxone 1 IV daily (09/14- -IV Azithromycin 500 mg 5 days (09/14- -Incentive spirometry given -Pending blood cultures, sputum cultures, influenza and cocci -MRSA, pending -CBC and CMP in am #Gastric sleeve resection #Acid reflux, not responsive to PPIs #Hiatal hernia #obesity Hiatal hernia repair by Dr. Nino via fundoplication on 09/13/2024. -DRY CLEANING ATTENDANT pump and management as per Dr. Nino surgeon. Discussed case with my attending Dr. Meneses and Lucy, PGY-3. Thank you, Mary Castro, PGY-2 Attending Provider Attestation/Addendum I, Gretchen Meneses, , attest that I was physically present for the real portions of the service and evaluated the patient with the resident and I reviewed and discussed the case with the resident and agree with the resident's findings and plans of care as documented above Patient seen and evaluated this AM. She remains on 1L/NC and reports improvement of productive sputum. Encouraged patient to use IS. She remains on DRY CLEANING ATTENDANT pump. Patient states she has been able to get out of bed without lightheadedness or dizziness. She denies and shortness of breath. Continue to titrate O2 as tolerated. Continue with azithromycin and rocephin. Patient can be transitioned to PO azithromycin on discharge. We will continue to follow closely. Pain management as per surgeon.
[2024-09-15] MEDS: HYDROcodone/APAP 10/325 TAB PO ×3 (11:54→23:50)
--- NOTE | 2024-09-15 13:10 | PD.SURPROG ---
Documentation for date of: 09/15/24 Subjective Subjective Brief History: This 34 years old black female had gastric sleeve resection and she lost about 110 lbs but developed acid reflex. This is not responding well to PPI medications. She was found to have hiatal hernia and reflux. She will undergo laparoscopic Hiatal hernia and implantation of patch and fundoplication. Informed consent was obtained. Postop day 1 September 14, 2024: Coughing will have to check chest x-ray. She has some wheezes on the bases that she also is known to have asthma. Will request internal medicine consultation. She is able to tolerate a clear liquid diet without any dysphagia or difficulty she has no acid reflux as far as she can tell. The Adams catheter will be removed today she is requiring IV narcotics for pain management. She is not using incentive spirometer this was ordered and patient was taught how to use incentive spirometer. She has complaints of incisional abdominal pain otherwise she is okay. Postop day 2 September 15, 2024. Patient had a chest x-ray that showed pneumonia in the left base white cell count is elevated internal medicine consultation was reviewed and patient was placed on IV antibiotics and today patient seem to be doing little bit better she is coughing up sputum and able to breathe better. She is getting out of the bed and going to the bathroom. And she is tolerating full liquid diet well and will be advanced to soft diet. There are no other complaints. Exam Vital Signs Temp Pulse Resp BP Pulse Ox O2 Del Method O2 Flow Rate 97.0 F 79 18 156/102 H 98 Nasal Cannula 1 09/15/24 12:00 09/15/24 12:00 09/15/24 12:00 09/15/24 12:09/15/24 12:00 09/15/24 12:00 09/15/24 12:00 Narrative Exam The abdominal dressing is changed the wound appears to be healing normally there is no swelling there is no drainage. The lungs are little bit better reduced rhonchi on the bases she still has some she is using the incentive spirometer and patient has has no other remarkable findings.. Assessment & Plan Diagnosis (1) History of fundoplication: Status: Acute (2) Hernia, hiatal: Status: Acute (3) Regurgitant esophagitis: Status: Acute Plan Advance diet to soft diet continue IV antibiotics get out of the bed and ambulate more discontinued the IV fluid and start oral pain medications discontinue IV Dilaudid ARCADE GAMES MECHANIC. Give a trial of pain management by oral pain meds. The patient tolerates that well and her pulmonary status improves then she may be discharged home in a day or 2. Procedures Procedure Date 09/13/24 Procedures Attempted laparoscopic antireflux procedure and laparoscopic lysis of adhesions September 13, 2024 Exploratory laparotomy and control of splenic bleeding from hilum 270 degree Toupet fundoplication.
[2024-09-15 13:24] LABS: Cocci Serology, IgM Negative (Negative)
[2024-09-15 15:41] LABS: Influenza A Ag Negative; Influenza B Ag Negative
[2024-09-15] MEDS: ACETAMINOPHEN 325 MG TABLET PO ×2 (16:43→21:21)
[2024-09-15] MEDS: guaiFENesin/DM TABLET 1 EACH PO (18:27)
[2024-09-16] VITALS (10 sets, daily range): BP systolic 127–180; BP diastolic 80–108; PULSE 86–103; RESP 14–92; TEMP 35.7–36.4; O2SAT 95–99
[2024-09-16 06:08] LABS: Basophils # (Auto) 0.1 Thou/mm3 (0.0-0.2); Basophils % (Auto) 0 % (0-2.5); Eosinophils # (Auto) 0.2 Thou/mm3 (0.0-0.5); Eosinophils % (Auto) 1 % (0-10); Hematocrit 35.7 % (36.0-46.0); Hemoglobin 12.5 g/dL (12.0-16.0); Immature Granulocytes % (Auto) 0 % (0-0); Immature Granulocytes Auto 0.05 Thou/mm3 (0.00-0.00); Lymphocytes # (Auto) 2.6 Thou/mm3 (1.0-4.8); Lymphocytes % (Auto) 19 % (10-50); Mean Corpuscular Hemoglobin 31.3 pg (25.0-35.0); Mean Corpuscular Volume 89 fL (80-100); Monocytes # (Auto) 1.8 Thou/mm3 (0.0-0.8); Monocytes % (Auto) 13 % (0-12); Neutrophils # (Auto) 9.1 Thou/mm3 (1.8-7.7); Neutrophils % (Auto) 66 % (37-80); Nucleated Red Blood Cell % 0 /100 WBC (0); Platelet Count 314 Thou/mm3 (140-440); RDW Standard Deviation 45.4 fL (36.4-46.3); White Blood Count 13.8 Thou/mm3 (3.6-11.0)
[2024-09-16] MEDS: HYDROcodone/APAP 10/325 TAB PO ×3 (06:29→18:38)
[2024-09-16 06:53] LABS: Alanine Aminotransferase 37 U/L (10-49); Albumin, Serum 4.2 gm/dL (3.5-5.0); Albumin/Globulin Ratio 1.4 (1.2-2.2); Alkaline Phosphatase 59 U/L (46-116); Anion Gap 6 (7-16); Aspartate Amino Transferase 32 U/L (0-34); BUN/Creatinine Ratio 8 Ratio (12-20); Bilirubin,Total 0.6 mg/dL (0.3-1.2); Blood Urea Nitrogen < 5 mg/dL (9-23); Calcium 9.6 mg/dL (8.3-10.6); Calcium (Corrected) 9.6 mg/dL (8.5-10.1); Carbon Dioxide 26.8 mMol/L (20.0-31.0); Chloride 100 mMol/L (98-107); Creatinine (Component) 0.6 mg/dL (0.6-1.3); Estimated Creatinine Clearance 134.2 mL/min (>60); Globulin 2.9 gm/dL (2.3-3.5); Glucose 89 mg/dL (74-106); Osmolality,Calculated 262 (275-295); Potassium 3.7 mMol/L (3.4-5.1); Sodium 133 mMol/L (136-145); Total Protein 7.1 gm/dL (5.7-8.2); eGFR > 60 See Note
[2024-09-16] MEDS: GABAPENTIN 100 MG CAPSULE 200 MG PO ×2 (08:32→20:49)
[2024-09-16] MEDS: AZITHROMYCIN 250 MG TABLET 500 MG PO (08:33)
[2024-09-16] MEDS: cefTRIAXone/D5w 1gm IV premix 50 ML IV (09:14)
--- NOTE | 2024-09-16 09:42 | ESPR_ITS ---
<Statement entered by Rodger Harris DO - 09/16/24 19:41> Senior attestation: Patient was examined and case was reviewed with team including attending physician. Note reviewed, I agree with most of its contents and agree with the patient's care. Will continue rocephin and azithromycin, preliminary blood cultures negative on 24 hour read. Patient report constipation, has not passed BM since admission, was noted to have pain medications during course, will give senna x1 and start prn senna. Rodger Harris DO PGY-3 Documentation for date of: 09/16/24 Subjective Subjective Interval history: Absence of acute overnight events. Patient is seen at bedside. Labs reviewed. She no longer has sputum production and reduced cough. Auscultated lungs relatively clear, only minimal rales. Continue IV ceftriaxone and azithromycin with incentive spirometry. Blood cultures negative x2 prelim. Sputum cultures grew ocassional gram negative rods, cx pending. Influenza negative, strep A and cocci negative. Exam Vital Signs Temp Pulse Resp BP Pulse Ox O2 Del Method O2 Flow Rate 96.2 F L 101 H 14 156/108 H 99 Room Air 1 09/16/24 08:00 09/16/24 08:00 09/16/24 08:00 09/16/24 08:00 09/16/24 08:00 09/16/24 08:00 09/15/24 23:44 Narrative Exam Constitutional: well-developed, well-nourished, in no acute distress, lying in bed. HEENT: NCAT, EOMI, reactive round pupils b/l, patent nares b/l, moist mucous membranes, saturating at 98% on room air. Lung: CTAB, no wheezing, no rhonchi. Heart: Regular S1S2, no murmurs, gallops, or rubs. Abdomen: Soft, non-distended, Surgical gauze at midline and abdominal binder noted. Extremities: No cyanosis, clubbing, no edema of b/l legs, 2+ dorsalis pulses and 2+ posterior tibial pulses present b/l Neurologic: No motor deficits noted, AOx3, appropriate affect Skin: Warm, dry, no lesions or rashes noted Objective Labs 09/17/24 05:46 09/17/24 05:46 Labs: Laboratory Results - last 24 hr 09/14/24 09/15/24 09/16/24 19:56 14:00 05:39 WBC 13.8 H RBC 4.00 Hgb 12.5 Hct 35.7 L MCV 89 MCH 31.3 MCHC 35.0 RDW Std Deviation 45.4 Plt Count 314 Neut % (Auto) 66 Lymph % (Auto) 19 [place] % (Auto) 13 H Eos % (Auto) 1 Baso % (Auto) 0 Neut # (Auto) 9.1 H Lymph # (Auto) 2.6 [place] # (Auto) 1.8 H Eos # (Auto) 0.2 Baso # (Auto) 0.1 Immature Gran # (Auto) 0.05 H Absolute Nucleated RBC 0.00 Immature Gran % 0 Nucleated RBC % 0 Sodium 133 L Potassium 3.7 Chloride 100 Carbon Dioxide 26.8 Anion Gap 6 L BUN < 5 L Creatinine 0.6 Estim Creat Clear Calc 134.2 eGFR > 60 BUN/Creatinine Ratio 8 L Glucose 89 Calculated Osmolality 262 L Calcium 9.6 Corrected Calcium 9.6 Total Bilirubin 0.6 AST 32 ALT 37 Alkaline Phosphatase 59 Total Protein 7.1 Albumin 4.2 Globulin 2.9 Albumin/Globulin Ratio 1.4 Coccidioides IgM Ab Negative Influenza A (Rapid) Negative Influenza B (Rapid) Negative Quality Measures Quality Measures VTE prophylaxis Assessment & Plan Assessment Current Active Medications: Generic Name Dose Route Start Last Admin Trade Name Freq PRN Reason Stop Dose Admin Acetaminophen 325 mg 09/15/24 16:35 09/15/24 21:21 Acetaminophen 325 Mg Tablet PO 10/15/24 16:34 325 mg Q4HR PRN Administration MILD PAIN (1-3) OR FEVER > 101 Hydrocodone Bitart/Acetaminophen 1 tab 09/15/24 16:38 09/16/24 06:29 Hydrocodone/Apap 10/325 Tab PO 09/20/24 11:32 1 tab Q6HR PRN Administration PAIN SCALE 4-10(MOD-SEVERE) Azithromycin 500 mg 09/15/24 09:00 09/16/24 08:33 Azithromycin 250 Mg Tablet PO 09/18/24 08:59 500 mg QDAY OSWALDO Administration Gabapentin 200 mg 09/13/24 21:00 09/16/24 08:32 Gabapentin 100 Mg Capsule PO 10/13/24 20:59 200 mg BID OSWALDO Administration Promethazine HCl 12.5 mg/ 50.5 mls @ 2.5 mls/min 09/13/24 16:52 09/14/24 07:13 Sodium Chloride IV 10/13/24 16:51 2.5 mls/min Q4HR PRN Administration NAUSEA OR VOMITING Protocol Ceftriaxone Sodium/Dextrose 50 mls @ 100 mls/hr 09/14/24 17:05 09/16/24 09:14 Rocephin/D5w 1gm Iv Premix IV 09/21/24 17:04 100 mls/hr QDAY OSWALDO Administration Ondansetron HCl 4 mg 09/13/24 16:52 09/15/24 00:44 Ondansetron Inj 2 Mg/Ml Inj 2 Ml IV 10/13/24 16:51 4 mg Q6HR PRN Administration NAUSEA OR VOMITING Protocol Plan A 34-year-old female with past medical history of obesity, gastric sleeve resection, acid reflux, not responsive to PPIs, and hiatal hernia, and distant asthma hx who presented to the hospital on 09/12/2024 for hiatal hernia repair. On 09/14/2020 in the morning, she started to develop greenish-yellowish productive sputum and the cough became more severe. Subsequently, surgeon consulted medicine team for management of community-acquired pneumonia, on IV ceftriaxone and azithromycin and blood cultures negative x2 prelim. #Community acquired pneumonia Ddx: CAP vs asthma, less likely Patient presented with complaint of productive cough with imaging showing pneumonia, cough now resolved. 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 Patient denies any sick contacts or any recent travel. Patient does endorse a history of childhood asthma but with productive cough more indicative of pneumonia clinically. Chest x-ray showed suspicious for early left base pneumonia. No pulmonary edema. On physical exam, rales disappeared and lungs are now clear on auscultation bilaterally all lung lobes. Currently saturating 98% on room air. WBC 17.3 down trended to 13.8. Strep A negative. COVID negative. Sputum cultures grew ocassional gram negative rods. Influenza negative, strep A and cocci negative. Plan: -IV Ceftriaxone 1 IV daily (09/14- -IV Azithromycin 500 mg 5 days (09/14- -Incentive spirometry given -Pending sputum cultures -MRSA, pending -Recommend oral amoxicillin on discharge. -CBC and CMP in am #Constipation Differential diagnosis: Opiate-induced constipation vs adhesions Patient has not passed stool in the past 3 days since surgery. Patient possibly has developed constipation from opiate use during hospital course. Possible component of adhesions, in the setting of recent adhesion finding on fundoplication, leading to constipation. -Senna x 1 -Senna 1 tablet orally as needed for constipation daily -Will monitor closely #Gastric sleeve resection #Acid reflux, not responsive to PPIs #Hiatal hernia #obesity Hiatal hernia repair by Dr. Nino via fundoplication on 09/13/2024. -management as per Dr. Nino surgeon. Discussed case with my attending Dr. Merida and Steven, PGY-3. Thank you, Mary Castro, PGY-2 Attending Provider Attestation/Addendum I have discussed and was present for the essential components of the history, physical examination, diagnosis, and treatment plan with the resident. I agree with the patient's care as documented by the resident and amended herein by me. Bony Merida, DO. Patient seen and evaluated this AM. Patient clinically doing well, states she feels improved. Patient was started on an IV antibiotics, ceftriaxone and azithromycin for community-acquired pneumonia. The patient can be transition to amoxicillin for a total 5-day course of antibiotics. Will continue to follow Although this document has been carefully reviewed, there may still be some phonetic and other typographical errors. These errors are purely grammatical due to imperfections in the software program and should not be construed in any way to compromise the substance of the patient's medical care during this visit.
[2024-09-16] MEDS: hydrALAZINE INJ 20 MG/ML VIAL 10 MG IV (12:49)
[2024-09-16 13:51] LABS: Cocci Serology, IgG Negative (Negative)
[2024-09-16] MEDS: SENNA TABLET 1 TAB PO (16:48)
--- NOTE | 2024-09-16 20:26 | PD.SURPROG ---
Documentation for date of: 09/16/24 Subjective Subjective Brief History: This 34 years old black female had gastric sleeve resection and she lost about 110 lbs but developed acid reflex. This is not responding well to PPI medications. She was found to have hiatal hernia and reflux. She will undergo laparoscopic Hiatal hernia and implantation of patch and fundoplication. Informed consent was obtained. Postop day 1 September 14, 2024: Coughing will have to check chest x-ray. She has some wheezes on the bases that she also is known to have asthma. Will request internal medicine consultation. She is able to tolerate a clear liquid diet without any dysphagia or difficulty she has no acid reflux as far as she can tell. The Adams catheter will be removed today she is requiring IV narcotics for pain management. She is not using incentive spirometer this was ordered and patient was taught how to use incentive spirometer. She has complaints of incisional abdominal pain otherwise she is okay. Postop day 2 September 15, 2024. Patient had a chest x-ray that showed pneumonia in the left base white cell count is elevated internal medicine consultation was reviewed and patient was placed on IV antibiotics and today patient seem to be doing little bit better she is coughing up sputum and able to breathe better. She is getting out of the bed and going to the bathroom. And she is tolerating full liquid diet well and will be advanced to soft diet. There are no other complaints. Postop day 3 September 16, 2024 patient still has coughing is requiring IV antibiotics as she is constipated and requires laxatives she has been able to get out of the bed and ambulate in the room she needs to ambulate more in the hallways. Patient states that she is quite weak. The white cell count came down to 13,006 responding to the antibiotics. Patient is still observed to cough up green sputum. Plan to discharge her home by tomorrow on oral antibiotics. There is no other complaints. Exam Vital Signs Temp Pulse Resp BP Pulse Ox O2 Del Method O2 Flow Rate 96.8 F 98 20 127/96 H 95 Room Air 1 09/16/24 20:00 09/16/24 20:00 09/16/24 20:00 09/16/24 20:00 09/16/24 20:00 09/16/24 20:00 09/15/24 23:44 Narrative Exam Abdominal incision is healing normally without any drainage or hyperemia bowel tones are present incisional tenderness is present abdomen is nondistended cardiopulmonary examination is improved with reduced rhonchi on the bases extremities are unremarkable. Results Results: Laboratory Laboratory results: results reviewed Assessment & Plan Diagnosis (1) History of fundoplication: Status: Acute (2) Pneumonia: Status: Acute (3) Bleeding: Status: Acute (4) Peritoneal adhesions (postprocedural) (postinfection): Status: Acute (5) Hernia, hiatal: Status: Acute (6) Slow transit constipation: Status: Acute Plan Advance diet to soft diet discharge planning for tomorrow. Procedures Procedure Date 09/13/24 Procedures Attempted laparoscopic antireflux procedure and laparoscopic lysis of adhesions September 13, 2024 Exploratory laparotomy and control of splenic bleeding from hilum 270 degree Toupet fundoplication.
[2024-09-16] MEDS: ONDANSETRON INJ 2 MG/ML INJ 2 ML 4 MG IV (20:46)
[2024-09-17] VITALS: BP 123/80; PULSE 83; RESP 18; TEMP 36.2; O2SAT 97
[2024-09-17] MEDS: HYDROcodone/APAP 10/325 TAB PO ×2 (00:56→12:12)
[2024-09-17 01:24] VITALS: PULSE 85; RESP 18; RESP 95
[2024-09-17 04:00] VITALS: BP 136/90; PULSE 98; RESP 18; TEMP 35.9; O2SAT 99
[2024-09-17 06:07] LABS: Basophils # (Auto) 0.1 Thou/mm3 (0.0-0.2); Basophils % (Auto) 0 % (0-2.5); Eosinophils # (Auto) 0.3 Thou/mm3 (0.0-0.5); Eosinophils % (Auto) 2 % (0-10); Hematocrit 34.7 % (36.0-46.0); Hemoglobin 12.2 g/dL (12.0-16.0); Immature Granulocytes % (Auto) 1 % (0-0); Immature Granulocytes Auto 0.07 Thou/mm3 (0.00-0.00); Lymphocytes # (Auto) 3.7 Thou/mm3 (1.0-4.8); Lymphocytes % (Auto) 29 % (10-50); Mean Corpuscular HGB Conc 35.2 g/dl (31.0-37.0); Mean Corpuscular Hemoglobin 31.5 pg (25.0-35.0); Mean Corpuscular Volume 90 fL (80-100); Monocytes # (Auto) 1.8 Thou/mm3 (0.0-0.8); Monocytes % (Auto) 14 % (0-12); Neutrophils % (Auto) 55 % (37-80); Nucleated Red Blood Cell % 0 /100 WBC (0); Platelet Count 306 Thou/mm3 (140-440); Red Blood Count 3.87 Miln/mm3 (4.00-5.20); White Blood Count 12.8 Thou/mm3 (3.6-11.0)
[2024-09-17 06:59] LABS: Alanine Aminotransferase 28 U/L (10-49); Albumin, Serum 4.1 gm/dL (3.5-5.0); Albumin/Globulin Ratio 1.4 (1.2-2.2); Alkaline Phosphatase 58 U/L (46-116); Anion Gap 6 (7-16); Aspartate Amino Transferase < 8 U/L (0-34); BUN/Creatinine Ratio 10 Ratio (12-20); Bilirubin,Total 0.6 mg/dL (0.3-1.2); Blood Urea Nitrogen 6 mg/dL (9-23); Calcium 9.6 mg/dL (8.3-10.6); Calcium (Corrected) 9.6 mg/dL (8.5-10.1); Carbon Dioxide 28.4 mMol/L (20.0-31.0); Chloride 100 mMol/L (98-107); Creatinine (Component) 0.6 mg/dL (0.6-1.3); Estimated Creatinine Clearance 134.2 mL/min (>60); Globulin 2.9 gm/dL (2.3-3.5); Glucose 85 mg/dL (74-106); Osmolality,Calculated 264 (275-295); Potassium 3.6 mMol/L (3.4-5.1); Sodium 134 mMol/L (136-145); eGFR > 60 See Note
[2024-09-17 07:49] VITALS: PULSE 106; RESP 19; RESP 98
[2024-09-17 08:00] VITALS: BP 154/98; PULSE 101; RESP 18; TEMP 36.2; O2SAT 99
[2024-09-17] MEDS: cefTRIAXone/D5w 1gm IV premix 50 ML IV (08:21)
[2024-09-17] MEDS: AZITHROMYCIN 250 MG TABLET 500 MG PO (08:21)
[2024-09-17] MEDS: SENNA TABLET 1 TAB PO (08:21)
[2024-09-17] MEDS: GABAPENTIN 100 MG CAPSULE 200 MG PO (08:21)
--- NOTE | 2024-09-17 08:53 | CHAP ---
Patient expressed gratitude for visit and prayer.
[2024-09-17 10:25] VITALS: BMI 33.5
--- NOTE | 2024-09-17 11:41 | ESPR_ITS ---
<Statement entered by Rodger Harris DO - 09/17/24 21:58> Senior attestation: Patient was examined and case was reviewed with team including attending physician. Note reviewed, I agree with most of its contents and agree with the patient's care. Discharge planning per primary team, internal medicine team advises PO amoxicillin course upon discharge. Rodger Harris DO PGY-3 Documentation for date of: 09/17/24 Subjective Subjective Interval history: Absence of acute overnight events. Patient is seen at bedside. Labs reviewed. Patient denies any cough or sputum. Auscultated lungs clear to auscultation bilaterally. Blood cultures negative x2 prelim. Sputum cultures grew ocassional gram negative rods, Cx grew mixed valentin. Influenza negative, strep A and cocci negative. Patient spoke with surgeon who informed patient she will be discharged today. Patient is clinically cleared for discharge. Recommend to discharge patient on amoxicillin 500 mg 3 times daily for pneumonia. Will sign off on this patient. Exam Vital Signs Temp Pulse Resp BP Pulse Ox O2 Del Method O2 Flow Rate 97.1 F 101 H 18 154/98 H 99 Room Air 1 09/17/24 08:00 09/17/24 08:00 09/17/24 08:00 09/17/24 08:00 09/17/24 08:00 09/17/24 08:00 09/15/24 23:44 Narrative Exam Constitutional: well-developed, well-nourished, in no acute distress, sitting up in chair. HEENT: NCAT, EOMI, reactive round pupils b/l, patent nares b/l, saturating at 99% on room air. Lung: CTAB, no wheezing, no rhonchi. Heart: Regular S1S2, no murmurs, gallops, or rubs. Abdomen: Soft, non-distended, nontender. Surgical gauze at midline and abdominal binder noted. Extremities: No cyanosis, clubbing, no edema of b/l legs, 2+ dorsalis pulses and 2+ posterior tibial pulses present b/l Neurologic: No motor deficits noted, AOx3, appropriate affect Skin: Warm, dry, no lesions or rashes noted Objective Labs 09/17/24 05:46 09/17/24 05:46 Labs: Laboratory Results - last 24 hr 09/14/24 09/17/24 19:56 05:46 WBC 12.8 H RBC 3.87 L Hgb 12.2 Hct 34.7 L MCV 90 MCH 31.5 MCHC 35.2 RDW Std Deviation 45.0 Plt Count 306 Neut % (Auto) 55 Lymph % (Auto) 29 [place] % (Auto) 14 H Eos % (Auto) 2 Baso % (Auto) 0 Neut # (Auto) 7.0 Lymph # (Auto) 3.7 [place] # (Auto) 1.8 H Eos # (Auto) 0.3 Baso # (Auto) 0.1 Immature Gran # (Auto) 0.07 H Absolute Nucleated RBC 0.00 Immature Gran % 1 H Nucleated RBC % 0 Sodium 134 L Potassium 3.6 Chloride 100 Carbon Dioxide 28.4 Anion Gap 6 L BUN 6 L Creatinine 0.6 Estim Creat Clear Calc 134.2 eGFR > 60 BUN/Creatinine Ratio 10 L Glucose 85 Calculated Osmolality 264 L Calcium 9.6 Corrected Calcium 9.6 Total Bilirubin 0.6 AST < 8 ALT 28 Alkaline Phosphatase 58 Total Protein 7.0 Albumin 4.1 Globulin 2.9 Albumin/Globulin Ratio 1.4 Coccidioides IgG Ab Negative Quality Measures Quality Measures VTE prophylaxis Assessment & Plan Assessment Current Active Medications: Generic Name Dose Route Start Last Admin Trade Name Freq PRN Reason Stop Dose Admin Acetaminophen 325 mg 09/15/24 16:35 09/15/24 21:21 Acetaminophen 325 Mg Tablet PO 10/15/24 16:34 325 mg Q4HR PRN Administration MILD PAIN (1-3) OR FEVER > 101 Hydrocodone Bitart/Acetaminophen 1 tab 09/15/24 16:38 09/17/24 00:56 Hydrocodone/Apap 10/325 Tab PO 09/20/24 11:32 1 tab Q6HR PRN Administration PAIN SCALE 4-10(MOD-SEVERE) Azithromycin 500 mg 09/15/24 09:00 09/17/24 08:21 Azithromycin 250 Mg Tablet PO 09/18/24 08:59 500 mg QDAY OSWALDO Administration Gabapentin 200 mg 09/13/24 21:00 09/17/24 08:21 Gabapentin 100 Mg Capsule PO 10/13/24 20:59 200 mg BID OSWALDO Administration Hydralazine HCl 10 mg 09/16/24 16:49 Hydralazine Hcl 10 Mg Tablet PO 10/16/24 16:59 TID PRN SBP>170 Promethazine HCl 12.5 mg/ 50.5 mls @ 2.5 mls/min 09/13/24 16:52 09/14/24 07:13 Sodium Chloride IV 10/13/24 16:51 2.5 mls/min Q4HR PRN Administration NAUSEA OR VOMITING Protocol Ceftriaxone Sodium/Dextrose 50 mls @ 100 mls/hr 09/14/24 17:05 09/17/24 08:21 Rocephin/D5w 1gm Iv Premix IV 09/21/24 17:04 100 mls/hr QDAY OSWALDO Administration Ondansetron HCl 4 mg 09/13/24 16:52 09/16/24 20:46 Ondansetron Inj 2 Mg/Ml Inj 2 Ml IV 10/13/24 16:51 4 mg Q6HR PRN Administration NAUSEA OR VOMITING Protocol Sennosides 1 tab 09/16/24 15:56 09/17/24 08:21 Senna Tablet PO 10/16/24 15:55 1 tab QDAY PRN Administration CONSTIPATION Protocol Plan A 34-year-old female with past medical history of obesity, gastric sleeve resection, acid reflux, not responsive to PPIs, and hiatal hernia, and distant asthma hx who presented to the hospital on 09/12/2024 for hiatal hernia repair. On 09/14/2020 in the morning, she started to develop greenish-yellowish productive sputum and the cough became more severe. Subsequently, surgeon consulted medicine team for management of community-acquired pneumonia, on IV ceftriaxone and azithromycin and blood cultures negative x2 prelim. Recommend discharge on amoxicillin for a total of 3 days for pneumonia. #Community acquired pneumonia Patient presented with greenish productive cough and imaging showed pneumonia. 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 Patient denies any sick contacts or any recent travel. Distant history of asthma. Cough and congestion, resolved. Chest x-ray showed suspicious for early left base pneumonia. No pulmonary edema. On physical exam, clear on auscultation bilaterally all lung lobes. Currently saturating 99% on room air. WBC 13.8 down trended to 12.8. Strep A negative. COVID negative. Sputum cultures grew ocassional gram negative rods, mixed valentin. Influenza negative, strep A and cocci negative. Sputum cultures negative x2 Plan: -IV Ceftriaxone 1 IV daily (09/14- -IV Azithromycin 500 mg 5 days (09/14- -Incentive spirometry -If patient remains in the hospital tomorrow, will stop IV antibiotics and transition to oral amoxicillin. -Recommend oral amoxicillin 500 mg for total 3 days to end on 09/20/2024. -Patient is medically clear for discharge. #Constipation Differential diagnosis: Opiate-induced constipation vs adhesions Patient has not passed stool since surgery. Patient possibly has developed constipation from opiate use during hospital course. Adhesions found on recent surgical intervention are likely contributing to constipation. -Senna 1 tablet orally as needed for constipation daily -Will monitor closely #Gastric sleeve resection #Acid reflux, not responsive to PPIs #Hiatal hernia #obesity Hiatal hernia repair by Dr. Nino via fundoplication on 09/13/2024. -management as per Dr. Nino surgeon. Discussed case with my attending Dr. Merida and Steven, PGY-3. Thank you, Mary Castro, PGY-2 Attending Provider Attestation/Addendum I have discussed and was present for the essential components of the history, physical examination, diagnosis, and treatment plan with the resident. I agree with the patient's care as documented by the resident and amended herein by me. Bony Merida, DO. Patient seen and evaluated this AM. Patient states she feels further improved today, patient may be discharged today, can go on amoxicillin for total 1 week course, we appreciate the opportunity to participate in the care and management of this patient Although this document has been carefully reviewed, there may still be some phonetic and other typographical errors. These errors are purely grammatical due to imperfections in the software program and should not be construed in any way to compromise the substance of the patient's medical care during this visit..
[2024-09-17 12:00] VITALS: BP 149/99; PULSE 111; RESP 18; TEMP 36.4; O2SAT 98
--- NOTE | 2024-09-17 12:09 | PD.SURPROG ---
Documentation for date of: 09/17/24 Subjective Subjective Brief History: This 34 years old black female had gastric sleeve resection and she lost about 110 lbs but developed acid reflex. This is not responding well to PPI medications. She was found to have hiatal hernia and reflux. She will undergo laparoscopic Hiatal hernia and implantation of patch and fundoplication. Informed consent was obtained. Postop day 1 September 14, 2024: Coughing will have to check chest x-ray. She has some wheezes on the bases that she also is known to have asthma. Will request internal medicine consultation. She is able to tolerate a clear liquid diet without any dysphagia or difficulty she has no acid reflux as far as she can tell. The Adams catheter will be removed today she is requiring IV narcotics for pain management. She is not using incentive spirometer this was ordered and patient was taught how to use incentive spirometer. She has complaints of incisional abdominal pain otherwise she is okay. Postop day 2 September 15, 2024. Patient had a chest x-ray that showed pneumonia in the left base white cell count is elevated internal medicine consultation was reviewed and patient was placed on IV antibiotics and today patient seem to be doing little bit better she is coughing up sputum and able to breathe better. She is getting out of the bed and going to the bathroom. And she is tolerating full liquid diet well and will be advanced to soft diet. There are no other complaints. Postop day 3 September 16, 2024 patient still has coughing is requiring IV antibiotics as she is constipated and requires laxatives she has been able to get out of the bed and ambulate in the room she needs to ambulate more in the hallways. Patient states that she is quite weak. The white cell count came down to 13,006 responding to the antibiotics. Patient is still observed to cough up green sputum. Plan to discharge her home by tomorrow on oral antibiotics. There is no other complaints. Postop day 4 September 17, 2024. Patient is doing better she feels stronger able to eat solid food she is able to ambulate she is still producing some sputum but she is able to breathe better and her oxygen saturation has been coming to normal on room air and that she had a small bowel movement she is being discharged home today as her condition is improved. She does require pain medication but that can be managed by oral pain medication. Exam Vital Signs Temp Pulse Resp BP Pulse Ox O2 Del Method O2 Flow Rate 97.1 F 101 H 18 154/98 H 99 Room Air 1 09/17/24 08:00 09/17/24 08:00 09/17/24 08:00 09/17/24 08:00 09/17/24 08:00 09/17/24 08:00 09/15/24 23:44 Narrative Exam The abdomen is soft and nontender nondistended incision is healing normally without any drainage or hyperemia. Cardiopulmonary examination appears to be normal now. Results Results: Laboratory Laboratory Narrative: The WBC count is still elevated to 12,300 but it is trending down. Laboratory results: results reviewed Assessment & Plan Diagnosis (1) Postoperative pain: Status: Acute (2) History of fundoplication: Status: Acute (3) Pneumonia: Status: Acute (4) Bleeding: Status: Acute (5) Peritoneal adhesions (postprocedural) (postinfection): Status: Acute (6) Hernia, hiatal: Status: Acute (7) Regurgitant esophagitis: Status: Acute Plan Discharge patient home follow-up in my office within 7 to 10 days. Procedures Procedure Date 09/13/24 Procedures Attempted laparoscopic antireflux procedure and laparoscopic lysis of adhesions September 13, 2024 Exploratory laparotomy and control of splenic bleeding from hilum 270 degree Toupet fundoplication.
--- NOTE | 2024-09-17 12:18 | ESDS_ITS ---
Planned Discharge Date 09/17/24 DS: Providers Provider Date of admission: 09/13/24 16:32 Primary care physician: Sherin Washburn PA-C Admitting Provider: Josiah Nino MD Attending Provider on Admission: Da Merida DO Consults: 09/13/24 21:18 Referral Respiratory Therapy Routine Comment: 09/14/24 15:31 Consult to Adult Hospitalist Routine Comment: PNA Consulting Provider: Gerard Phillip Attending Provider on DC: Josiah Nino MD Discharging Provider: Josiah Nino MD Diagnosis Discharge Diagnosis (1) History of fundoplication: Status: Acute (2) Peritoneal adhesions (postprocedural) (postinfection): Status: Acute (3) Pneumonia: Status: Acute (4) Bleeding: Status: Acute (5) Hernia, hiatal: Status: Acute (6) Regurgitant esophagitis: Status: Acute (7) Postoperative pain: Status: Acute Problem List Completed Was Problem List Reviewed/Reconciled?: Yes Hospital Course Patient is a 34-year-old black female with history of gastric sleeve resection and significant gastroesophageal reflux she was brought to the hospital for laparoscopic hiatal hernia repair and Juan fundoplication. Laparoscopic examination revealed she had dense adhesions of the residual stomach with the left lobe of the liver however we were able to clear that on the way up to the diaphragm on the left side there was adhesions of the stomach with the splenic hilum and veins and the splenic vein branches started bleeding during the surgery the total blood loss was 170 cc. She required conversion to laparotomy via midline incision and the bleeding was controlled. The stomach was released from the adhesions to the spleen. Subsequently she was found to have a fundus which was larger than expected but was able to do the 270 degree fundoplication. This was calibrated with 56 [place] [employer] and it was good fundoplication. I did encounter abnormal configuration of the vertebral column and the aorta was pushed forward because she has a history of scoliosis and change she had scoliosis surgery. However the hiatus was not very large and did not admit my finger alongside the the esophagus and therefore hiatal hernia did not need to be repaired. Hemoglobin and hematocrit remained more or less stable that did not require any blood transfusion. Postoperatively patient had pain that was controlled with IV narcotics in the beginning with Dilaudid [employer] and later on in subsequent days it was switched over to as needed IV Dilaudid and for last 24 to 36 hours switch over to oral hydrocodone. There is a very regular able to manage through the pain control. She was coughing and had a productive sputum with rhonchi in her lung bases chest x-ray was done that showed that she had pneumonia. Internal medicine consultation was obtained and that showed need for IV antibiotics azathioprine was started. White cell count was 18,004 and 8 in the next 48 hours is gradually came down to 12,500. She was started on liquid diet that she tolerated that was slowly advanced to soft diet. Initially she was unable to get out of bed and ambulate and with the help of physical therapy 48 hours she was able to ambulate in the room in the hallway to her and that increased to making rounds in the hallway on the day of discharge. She had a Adams catheter that was removed in 36 hours after the surgery. The abdomen remained nondistended that she had wound care that showed that there was no drainage from the wound and had no hyperemia and wound has continued to heal at the normal pace. All in all her condition is markedly improved. She is getting out of the she has no acid reflux. Exam Vital Signs Temp Pulse Resp BP Pulse Ox O2 Del Method O2 Flow Rate 97.1 F 101 H 18 154/98 H 99 Room Air 1 09/17/24 08:00 09/17/24 08:00 09/17/24 08:00 09/17/24 08:00 09/17/24 08:00 09/17/24 08:00 09/15/24 23:44 Narrative Exam Abdomen is soft and nontender incision is healing normally there is no drainage or hyperemia. Cardiopulmonary examination is satisfactory. Extremities are unremarkable. Discharge Plan Plan Patient Disposition: HOME (Self Care) Disposition Comment: Antibiotics follow-up in the office in 1 week shower keep the incision dry Care Plan Goals: Please take amoxicillin 500 mg orally 3 times daily for 3 days total for pneumonia. Prescriptions/Referrals Prescriptions/Med Rec: New azithromycin 250 mg Tablet 500 mg PO QDAY 5 Days Qty: 10 0RF hydrocodone-acetaminophen 10-325 mg Tablet 1 tab PO Q6HR MDD 4 PRN (Reason: Pain) 10 Days Qty: 30 0RF Referrals: Sherin Washburn PA-C [Primary Care Provider] - Patient/Caregiver Discharge Instructions Other Discharge Activity Instructions:: May take shower. Keep the incision dry. Other Discharge Diet Instructions: Advance to regular diet as tolerated Education Materials: Surgery Anesthesia After, Preventing Surgical Site Infections Print Language: Grenadian Stand Alone Forms: Yesenia Award Info., Patient Portal Info Letter Discharge Order Discharge Orders: Discharge (Routine); Ordered 09/17/24 Ordered By: Josiah Nino Results Results: Laboratory Laboratory Narrative: White cell count of 12,500. Hemoglobin hematocrit was normal. Laboratory results: results reviewed Procedures Procedure Date 09/13/24 Procedures Attempted laparoscopic antireflux procedure and laparoscopic lysis of adhesions September 13, 2024 Exploratory laparotomy and control of splenic bleeding from hilum 270 degree Toupet fundoplication.
--- NOTE | 2024-09-17 14:16 | PC.SS ---
SS was informed by bedside nurseRufina pt is requesting transportation. SS met with pt who is requesting transportation to [address] [place] [address] in [place]. SS offered taxi or bus pass. SS called taxi but next avialbe time is after 4pm. SS arranged [employer] transportation and license # of vehicle is [id number], make is [employer]. Pt is agreeable for [employer].
== END 2024-09-17 13:56 | disposition home or self-care (01) | DRG 220 ==
LOC: S3SX 16:48
PROVIDERS: Anesthesiology; Student in an Organized Health Care Education/Training Program; Admitting Provider Specialist; PCP Physician Assistant Medical; Referring Provider Specialist; Visit Provider Student in an Organized Health Care Education/Training Program
PROC: 0DV44ZZ Restriction of Esophagogastric Junction, Percutaneous Endoscopic Approach (ICD-10-PCS; CPT 43280; principal; 2024-09-13 10:45)
DX: K21.00 Gastro-esophageal reflux disease with esophagitis, without bleeding (principal); K44.9 Diaphragmatic hernia without obstruction or gangrene; Z98.84 Bariatric surgery status; K66.0 Peritoneal adhesions (postprocedural) (postinfection); D73.5 Infarction of spleen; J45.909 Unspecified asthma, uncomplicated; J18.9 Pneumonia, unspecified organism; E66.9 Obesity, unspecified; Z68.33 Body mass index [BMI] 33.0-33.9, adult; K59.01 Slow transit constipation; G89.18 Other acute postprocedural pain
CPT/HCPCS: 36415; 71046; 80053; 81001; 81025; 85025; 85610; 85730; 86331; 86635; 87040; 87081; 87205; 87502; 87651; 87811; 94664; A4217; A4649; J0131; J0360; J0456; J0694; J0696; J1100; J2405; J2550; J2704; J2710; J3010; J3490; J7050; J7120; P9045; A9270; J1596; J1805